=== PATIENT | male | born 1950 | race Caucasian/White ===

== ENCOUNTER 2017-03-19 02:37 | Emergency (ER) | payer SELFPAY ==
[~2017-03-19] VITALS: Ht 175.3 cm; Wt 47.9 kg
[2017-03-19 03:18] LABS: BLOOD UREA NITROGEN 19 mg/dL (7-18)
[2017-03-19 04:20] VITALS: BP 120/74
== END 2017-03-19 04:21 | disposition home or self-care (01) ==
LOC: ED 04:15
DX: S39.012A Strain of muscle, fascia and tendon of lower back, initial encounter (principal); W01.0XXA Fall on same level from slipping, tripping and stumbling without subsequent striking against object, initial encounter; Y93.89 Activity, other specified; Y92.488 Other paved roadways as the place of occurrence of the external cause; Y99.8 Other external cause status
CPT/HCPCS: 36415; 72110; 80048; 82040; 85025; 99285

== ENCOUNTER 2017-04-12 17:01 | Emergency (ER) | payer OTHER ==
[~2017-04-12] VITALS: Ht 175.3 cm; Wt 46.0 kg
[2017-04-12 17:04] VITALS: BP 124/86
[2017-04-12] MEDS ORDERED: KETOROLAC 30 MG/1 ML ONE (17:12)
[2017-04-12] MEDS ORDERED: GABAPENTIN 300 MG CAPSULE PO SCH (17:30)
[2017-04-12] MEDS ORDERED: KETOROLAC 30 MG/1 ML IM ONE ×2 (17:30→18:00)
== END 2017-04-12 18:51 | disposition home or self-care (01) ==
LOC: ED 18:31
DX: S16.1XXA Strain of muscle, fascia and tendon at neck level, initial encounter (principal); F17.210 Nicotine dependence, cigarettes, uncomplicated; Z85.9 Personal history of malignant neoplasm, unspecified; Z89.612 Acquired absence of left leg above knee; Z90.49 Acquired absence of other specified parts of digestive tract; W05.0XXA Fall from non-moving wheelchair, initial encounter; Y93.89 Activity, other specified; Y92.89 Other specified places as the place of occurrence of the external cause; Y99.8 Other external cause status
CPT/HCPCS: 72125; 96372; 99284; J1885

== ENCOUNTER 2020-08-12 11:14 | Emergency (ER) | payer OTHER ==
[~2020-08-12] VITALS: Ht 175.3 cm; Wt 50.0 kg
--- NOTE | 2020-08-12 11:30 | NUR ---
TRANSFER FROM [facility] FOR BLADDER STONES. SENIOR HR GENERALIST [facility]: IV LUDIN, BUN 31, CREAT 1.98 PT YELLING UPON ARRIVAL FOR WATER, WAS ATTEMPTING TO GET OFF GURNEY TO GET HIS OWN WATER. PT GIVEN 60ML H20. PT CONNECTED TO MONITORING. CALL LIGHT IN REACH. PT OWN WC IN ROOM.
[2020-08-12 13:17] VITALS: BP 128/75
[2020-08-12] MEDS ORDERED: LIDOCAINE 1%, 20ML ONE (13:35)
--- NOTE | 2020-08-12 13:46 | NUR ---
PT GOING TO IR.
--- NOTE | 2020-08-13 08:36 | NUR ---
CULTURE CALL: RECEIVED A FAX FROM [place], POSITIVE BLOOD CULTURE, NO NUMBER OR ADDRESS LISTED
== END 2020-08-12 15:31 | disposition home or self-care (01) ==
LOC: ED 12:15
DX: N30.00 Acute cystitis without hematuria (principal); F17.200 Nicotine dependence, unspecified, uncomplicated; Z85.9 Personal history of malignant neoplasm, unspecified
CPT/HCPCS: 51705; 75984; 99285; J3490